=== PATIENT | female | born 1990 | race Asian ===

== ENCOUNTER 2022-09-26 05:04 | Emergency (ER) | payer OTHER ==
[~2022-09-26] VITALS: Ht 162.6 cm; Wt 99.8 kg
[2022-09-26 05:10] VITALS: TEMP 98.5
[2022-09-26 05:33] LABS: PLATELET COUNT 370 K/uL (152-353)
[2022-09-26 05:42] LABS: POTASSIUM 4.5 mmol/L (3.6-5.2)
[2022-09-26 07:48] LABS: POTASSIUM 4.3 mmol/L (3.6-5.2)
[2022-09-26 08:56] VITALS: BP 130/78
== END 2022-09-26 08:56 | disposition short-term general hospital (02) ==
LOC: ED 05:04
PROVIDERS: Emergency Medicine Emergency Medical Services
DX: E11.10 Type 2 diabetes mellitus with ketoacidosis without coma (principal); Z79.4 Long term (current) use of insulin
CPT/HCPCS: 36600; 80048; 80053; 81000; 81002; 81025; 82805; 82948; 83036; 83735; 84443; 84484; 85027; 93005; 96361; 96365; 96366; 96375; 96376; 99285; J1815; J2405; J3490

== ENCOUNTER 2022-11-01 16:57 | Emergency (ER) | payer OTHER ==
[~2022-11-01] VITALS: Ht 165.1 cm; Wt 88.5 kg
[2022-11-01 17:43] LABS: PLATELET COUNT 360 K/uL (152-353)
[2022-11-01 17:53] LABS: POTASSIUM 3.8 mmol/L (3.6-5.2)
[2022-11-01 20:33] VITALS: BP 126/70; TEMP 98.8
== END 2022-11-01 20:33 | disposition home or self-care (01) ==
LOC: ED 16:57
PROVIDERS: Emergency Medicine
DX: K29.60 Other gastritis without bleeding (principal); E86.0 Dehydration
CPT/HCPCS: 36415; 80053; 83690; 85027; 96361; 96374; 96375; 99284; J2405

== ENCOUNTER 2022-12-23 19:02 | Emergency (ER) | payer OTHER ==
[~2022-12-23] VITALS: Ht 165.1 cm; Wt 81.6 kg
[2022-12-23 19:05] VITALS: BP 173/95; TEMP 98.2
== END 2022-12-23 21:35 | disposition home or self-care (01) ==
LOC: ED 19:02
DX: S00.03XA Contusion of scalp, initial encounter (principal); S16.1XXA Strain of muscle, fascia and tendon at neck level, initial encounter; R29.715 NIHSS score 15; V89.2XXA Person injured in unspecified motor-vehicle accident, traffic, initial encounter
CPT/HCPCS: 81025; 99283